=== PATIENT | male | born 1985 | race Caucasian/White ===

== ENCOUNTER 2017-06-29 20:05 | Emergency (ER) | payer SELFPAY ==
[2017-06-29] MEDS ORDERED: MORPHINE IV ONE (20:24)
[2017-06-29] MEDS ORDERED: ZOFRAN IV ONE (20:24)
--- NOTE | 2017-06-29 20:31 | Emergency Department Report ---
ED Fall HPI - General Chief Complaint: Fall Stated Complaint: FALL 16 FT Time Seen by Provider: 06/29/17 20:18 Source: patient, family Mode of arrival: Wheelchair Limitations: Language Barrier - History of Present Illness Initial Comments: Consent is a 31 years old male presented after a fall from 16 feet high. He is complaining mainly abdominal pain and bilateral ankle pain. Denied any loss of consciousness no weakness numbness or tingling associated. MD Complaint: fall -: This afternoon Fall From: from height (distance) (16 feet) When Fall Occurred: just prior to arrival Place Fall Occurred: work Loss of Consciousness: none Prolonged Down Time?: no Symptoms Prior to Fall: none Location: head, neck, back, abdomen, pelvis Location - Extremities: Left: Ankle, Right: Ankle Severity scale (0 -10): 6 Quality: sharp Context: alcohol use Associated Symptoms: neck pain, abdominal pain. denies: headache, numbness, weakness, chest paint, shortness of breath, hematuria, unable to walk, lightheaded, vertigo, confusion - Related Data Previous Rx's Medication Instructions Recorded Last Taken Type Ondansetron [Zofran Odt] 4 mg PO Q4-6H PRN #14 tab.rapdis 06/29/17 Unknown Rx oxyCODONE /ACETAMINOPHEN [Percocet 1 tab PO Q6HR PRN #14 tablet 06/29/17 Unknown Rx 5/325] Allergies Allergy/AdvReac Type Severity Reaction Status Date / Time No Known Allergies Allergy Verified 06/29/17 20:11 ED Review of Systems ROS: Stated complaint: FALL 16 FT Other details as noted in HPI Comment: All other systems reviewed and negative Constitutional: denies: no symptoms reported ENT: denies: hearing loss Respiratory: denies: cough, shortness of breath Cardiovascular: denies: chest pain, palpitations Gastrointestinal: abdominal pain. denies: nausea, vomiting Musculoskeletal: back pain. denies: joint swelling Neurological: denies: headache, weakness, numbness, paresthesias, confusion, abnormal gait ED Past Medical Hx - Past Medical History Previous Medical History?: No - Surgical History Past Surgical History?: No - Social History Smoking Status: Never Smoker Substance Use Type: None - Medications Home Medications: Home Medications Medication Instructions Recorded Confirmed Last Taken Type Ondansetron [Zofran Odt] 4 mg PO Q4-6H PRN #14 tab.rapdis 07/31/17 Unknown Rx oxyCODONE /ACETAMINOPHEN [Percocet 1 tab PO Q6HR PRN #14 tablet 06/29/17 Unknown Rx 5/325] ED Physical Exam - General Limitations: No Limitations, Language Barrier General appearance: in no apparent distress (minor abrasion to the forehead) - Eye Eye exam: Present: normal appearance - ENT ENT exam: Present: normal exam, normal orophraynx, mucous membranes moist, TM's normal bilaterally - Neck Neck exam: Present: normal inspection, full ROM. Absent: tenderness - Respiratory Respiratory exam: Present: normal lung sounds bilaterally. Absent: wheezes, rales, stridor - Cardiovascular Cardiovascular Exam: Present: regular rate, normal rhythm, normal heart sounds - GI/Abdominal GI/Abdominal exam: Present: soft, tenderness, normal bowel sounds. Absent: guarding, rebound, rigid, mass, pulsatile mass, hernia - Back Exam Back exam: Present: normal inspection, full ROM, tenderness, muscle spasm. Absent: CVA tenderness (L), paraspinal tenderness, vertebral tenderness - Neurological Exam Neurological exam: Present: alert, oriented X3, CN II-XII intact. Absent: motor sensory deficit - Skin Skin exam: Present: warm, intact, normal color ED Course Vital Signs 06/29/17 20:11 Temperature 98 F Pulse Rate 110 H Respiratory 16 Rate Blood Pressure 124/82 O2 Sat by Pulse 100 Oximetry - Reevaluation(s) Reevaluation #1: 06/29/17 23:36 patient stated that he feel much better. neurovascular exam is still intact. will refer to f/u with Dr Santamaria in the next two to three days. ED Medical Decision Making - Lab Data Result diagrams: 06/29/17 20:41 06/29/17 20:41 Critical care attestation.: If time is entered above; I have spent that time in minutes in the direct care of this critically ill patient, excluding procedure time. ED Disposition Clinical Impression: Fall, Vertebral compression fracture Disposition: DC- TO HOME OR SELFCARE Is pt being admited?: No Does the pt Need Aspirin: No Condition: Stable Instructions: Vertebral Compression Fracture (ED), Fall Prevention (ED) Referrals: PRIMARY MD BRADLY [Primary Care Provider] - 3-5 Days JONATHAN SANTAMARIA MD [Staff Physician] - 3-5 Days
[2017-06-29 20:51] LABS: Basophils % (Auto) 0.2 % (0.0-1.8); Eosinophils % (Auto) 0.3 % (0.0-4.3); Hematocrit 48.1 % (35.5-45.6); Hemoglobin 16.3 gm/dl (11.8-15.2); Mean Corpuscular HGB Conc 34 % (32-34); Mean Corpuscular Hemoglobin 29 pg (28-32); Mean Corpuscular Volume 87 fl (84-94); Platelet Count 304 K/mm3 (140-440); Red Blood Count 5.54 M/mm3 (3.65-5.03); Red Cell Distribution Width 14.9 % (13.2-15.2); White Blood Count 19.5 K/mm3 (4.5-11.0)
[2017-06-29 21:22] LABS: Alanine Aminotransferase 84 units/L (7-56); Albumin 4.5 g/dL (3.9-5); Albumin/Globulin Ratio 1.8 %; Alkaline Phosphatase 90 units/L (35-129); Anion Gap 23 mmol/L; Blood Urea Nitrogen 9 mg/dL (9-20); Calcium 9.4 mg/dL (8.4-10.2); Carbon Dioxide 22 mmol/L (22-30); Chloride 96.3 mmol/L (98-107); Glucose 101 mg/dL (75-100); Potassium 3.5 mmol/L (3.6-5.0); Sodium 138 mmol/L (137-145)
--- NOTE | 2017-06-29 22:11 | Cat Scan Report ---
FINAL REPORT PROCEDURE: CT HEAD/BRAIN WO CON TECHNIQUE: Computerized tomography of the head was performed without contrast material. HISTORY: head injury COMPARISON: No prior studies are available for comparison. FINDINGS: Skull and scalp: Mild degree left frontal scalp swelling is noted.. Paranasal sinuses: Normal. Ventricles and subarachnoid spaces: Are prominent for patient's age consistent with cerebral atrophy. Cerebrum: No evidence of hemorrhage, acute infarction or mass . Cerebellum and brainstem: No evidence of hemorrhage, acute infarction or mass. Vasculature: Normal. Comments: None. IMPRESSION: Cerebral atrophy advanced for patient's age. No acute intracranial abnormality. Mild degree left frontal scalp hematoma
--- NOTE | 2017-06-29 22:18 | Cat Scan Report ---
FINAL REPORT PROCEDURE: CT CERVICAL SPINE WO CON TECHNIQUE: Computerized tomography of the cervical spine was performed from the skull base to T1 without contrast material. HISTORY: fall 16 feet COMPARISON: No prior studies are available for comparison. FINDINGS: C1-2: No significant abnormality. C2-3: No significant abnormality. C3-4: No significant abnormality. C4-5: No significant abnormality. C5-6: No significant abnormality. C6-7: No significant abnormality. C7-T1: No significant abnormality. Other: No additional findings. IMPRESSION: No acute abnormality.
--- NOTE | 2017-06-29 22:58 | Cat Scan Report ---
FINAL REPORT PROCEDURE: CT ABDOMEN PELVIS W CON TECHNIQUE: Computerized axial tomography of the abdomen and pelvis was performed after the IV injection of iodinated nonionic contrast. HISTORY: abdominal pain, fall 16 feet COMPARISON: No prior studies are available for comparison. FINDINGS: Liver, spleen, and adrenal glands are within normal limits. Bilateral kidneys demonstrate normal enhancement without hydronephrosis or very nephric collections. Aorta is of normal caliber. There is no free fluid or free air. Gallbladder is unremarkable. Small bowel loops are within normal limits. Urinary bladder is well distended with normal outlines. Acute mild degree wedge compression deformities are noted involving the superior endplates of L2 and L4 vertebral bodies. IMPRESSION: Acute mild degree superior endplate compression deformities of L2 and L4 vertebrae. No acute intra-abdominal or pelvic visceral injury
[2017-06-29 23:47] VITALS: BP 116/76
--- NOTE | 2017-06-30 07:14 | XRay Report ---
BILATERAL ANKLE, 3 VIEWS History: Bilateral ankle pain after fall. Findings: No acute osseous abnormality is appreciated. No joint pathology. The soft tissues are unremarkable. Impression: No acute injury identified.
== END 2017-06-30 01:10 | disposition home or self-care (01) ==
LOC: ED 20:05
DX: S22.008A Other fracture of unspecified thoracic vertebra, initial encounter for closed fracture (principal); W19.XXXA Unspecified fall, initial encounter; Y93.89 Activity, other specified; Y99.9 Unspecified external cause status; Y92.89 Other specified places as the place of occurrence of the external cause
CPT/HCPCS: 36415; 70450; 72125; 73610; 74177; 80053; 85025; 93005; 93010; 96374; 96375; 99284; J2270; J2405; Q9967